=== PATIENT | female | born 1955 | race Caucasian/White ===

== ENCOUNTER 2016-09-30 14:53 | Emergency (ER) | payer OTHER ==
[~2016-09-30] VITALS: Ht 147.3 cm; Wt 73.2 kg
[~2016-09-30 14:53] MED LIST: ATENOLOL100 MG; BABY ASPIRIN81 M1 PO; CALTRATE 600600 MG PO; FLUTICASONE PRO16 GM; GARLIC PO; LISINOPRIL20 MG; OMEPRAZOLE20 MG; VYTORIN 10/41 TABLET; [UNRECOGNIZED DRUG - OTHER] PO
[2016-09-30 15:33] LABS: ADD MIUA? NO; BILIRUBIN NEGATIVE; BLOOD NEGATIVE; COLOR STRAW ((YELLOW)); GLUCOSE (STRIP) NEGATIVE; KETONES 5; LEUKOCYTES NEGATIVE; NITRITE NEGATIVE; PROTEIN (STRIP) NEGATIVE; SPECIFIC GRAVITY 1.008 (1.000-1.030); UCUL ADDED? NO; UROBILINOGEN 0.2 MG/DL (0.2-1.0)
[2016-09-30 15:42] LABS: EOSINOPHIL (%) 0.5 % (0-5); HEMATOCRIT 39.1 % (36.0-46.0); IMMATURE GRANULOCYTE (%) 0.3 % (0.0-0.7); INSTRUMENT ABS NEUTROPHIL CT 5.5 K/uL; LYMPHOCYTE COUNT 0.6 K/uL (1.0-2.8); MCH 30.7 PG (29.0-34.0); MCHC 34.3 G/DL (30.0-36.0); MCV 89.7 FL (83-99); MEAN PLAT.VOLUME 10.6 uM^3 (9.5-12.4); MONOCYTE (%) 3.6 % (3-12); MONOCYTE COUNT 0.2 K/uL (0-0.8); NEUTROPHIL (%) 86.4 % (45-76); NEUTROPHIL COUNT 5.5 K/uL (1.8-6.4); PLATELET COUNT 215 K/uL (156-360); RBC DIS.WIDTH-SD 39.8 % (39-53); RED BLOOD COUNT 4.36 M/uL (3.80-5.20); WHITE BLOOD COUNT 6.3 K/uL (4.1-10.2)
[2016-09-30 15:53] LABS: CHLORIDE 104 mEq/L (99-109); POTASSIUM 4.7 mEq/L (3.7-5.4); SODIUM 137 mEq/L (136-147)
[2016-09-30 15:54] LABS: MAGNESIUM 1.9 mg/dL (1.3-2.7)
[2016-09-30 15:55] LABS: GLUCOSE 107 mg/dL (70-99)
[2016-09-30 15:56] LABS: ANION GAP 10 MEQ/L (2-14)
[2016-09-30 15:59] LABS: GFR ESTIMATE (CALCULATED) > 59 mL/min/
[2016-09-30 16:00] LABS: UREA NITROGEN (BUN) 22 mg/dL (9-23)
[2016-09-30 16:47] VITALS: BP 126/81
== END 2016-09-30 17:00 | disposition home or self-care (01) ==
LOC: EME 14:53
PROVIDERS: Emergency Medicine
DX: R00.2 Palpitations (principal); T44.7X6A Underdosing of beta-adrenoreceptor antagonists, initial encounter; Z91.138 Patient's unintentional underdosing of medication regimen for other reason; E78.5 Hyperlipidemia, unspecified; I10 Essential (primary) hypertension; M79.7 Fibromyalgia; K21.9 Gastro-esophageal reflux disease without esophagitis; Z79.82 Long term (current) use of aspirin; F17.200 Nicotine dependence, unspecified, uncomplicated
CPT/HCPCS: 80048; 81003; 83735; 85025; 93005; 99281; 99284